=== PATIENT | female | born 1955 | race Two or more races ===

== ENCOUNTER 2023-01-12 20:34 | Emergency (ER) | payer OTHER ==
[~2023-01-12] VITALS: Ht 170.2 cm; Wt 52.0 kg
[2023-01-12] MEDS ORDERED: HYDROcodone-ACET 5/325MG TAB PO ONE (21:30)
[2023-01-12] MEDS ORDERED: ONDANSETRON HCL 4 MG/2 ML VIAL IV ONE (23:00)
[2023-01-12] MEDS ORDERED: MORPHINE SULFATE 4 MG/ML SYR/VIAL IV ONE (23:00)
[2023-01-13 00:15] VITALS: PULSE 72; RESP 18; O2SAT 96
[2023-01-13] MEDS ORDERED: MORPHINE SULFATE 4 MG/ML SYR/VIAL IV ONE (01:30)
[2023-01-13 02:47] VITALS: BP 125/63; PULSE 72; RESP 19; TEMP 98.2; O2SAT 96
== END 2023-01-13 03:14 ==
LOC: ER 20:34
DX: S82.302A Unspecified fracture of lower end of left tibia, initial encounter for closed fracture (principal); S82.832A Other fracture of upper and lower end of left fibula, initial encounter for closed fracture; S73.101A Unspecified sprain of right hip, initial encounter; S93.602A Unspecified sprain of left foot, initial encounter; X50.1XXA Overexertion from prolonged static or awkward postures, initial encounter; Y93.74 Activity, frisbee; Y92.89 Other specified places as the place of occurrence of the external cause; Y99.8 Other external cause status
CPT/HCPCS: 29515; 73502; 73610; 73620; 96374; 96375; 96376; 99285; J2270; J2405